=== PATIENT | male | born 1955 | race Hispanic/Latino ===

== ENCOUNTER 2019-05-15 09:15 | Inpatient (IN) | payer BC | END 2019-05-17 18:21 | disposition home or self-care (01) | LOC: EDH 09:15 → EDHIP 10:59 → 4AH 13:20 | PROC: 30253N1 (ICD-10-PCS; principal; ~2019-05-15) | DX: K92.1 Melena (principal); D62 Acute posthemorrhagic anemia; K76.6 Portal hypertension; K74.60 Unspecified cirrhosis of liver; N18.3 Chronic kidney disease, stage 3 (moderate); E11.22 Type 2 diabetes mellitus with diabetic chronic kidney disease; I12.9 Hypertensive chronic kidney disease with stage 1 through stage 4 chronic kidney disease, or unspecified chronic kidney disease ==

== ENCOUNTER 2024-04-09 06:05 | Day surgery (SDC) | payer BC, OTHER ==
[~2024-04-09] VITALS: Ht 160 cm; Wt 83.9 kg
[2024-04-09] VITALS (12 sets, daily range): BP systolic 90–123; BP diastolic 53–71; PULSE 65–73; RESP 14–16
[~2024-04-09 06:05] MED LIST: AMLO10TA4 PO; FERS325 PO; HYDR25TA PO; LACT10SO5 PO; LEVO125C4 PO; LOSA100T59 PO; NADO40TA2 PO; PANT40TA PO; RIFA550T PO; ROSU5TAB43 PO; SIME125C81 PO
[2024-04-09] MEDS ORDERED: EZET10TA48 PO (07:02)
[2024-04-09] MEDS: 0.9%NACL 1000ML 1,000 ML IV ONE (07:03)
[2024-04-09] MEDS ORDERED: PROPOFOL 10 MG/ML 20ML VIAL IV ONE (08:43)
== END 2024-04-09 09:50 | disposition home or self-care (01) ==
LOC: ENDO 06:05 → DAH 06:05 → EDSTATUS 09:00 → ENDO 09:50
PROVIDERS: ATTEND Internal Medicine Gastroenterology
DX: K76.6 Portal hypertension (principal); K74.69 Other cirrhosis of liver; K31.89 Other diseases of stomach and duodenum; I85.10 Secondary esophageal varices without bleeding; K76.82 Hepatic encephalopathy; R18.8 Other ascites; C22.9 Malignant neoplasm of liver, not specified as primary or secondary; K92.1 Melena; D50.9 Iron deficiency anemia, unspecified; E78.5 Hyperlipidemia, unspecified; I10 Essential (primary) hypertension; E03.9 Hypothyroidism, unspecified; E11.9 Type 2 diabetes mellitus without complications; Z79.84 Long term (current) use of oral hypoglycemic drugs; Z79.890 Hormone replacement therapy; Z79.899 Other long term (current) drug therapy; Z98.890 Other specified postprocedural states
CPT/HCPCS: 82948 ×2; 43239; J7030 ×2; J2704; A4620; A4215 ×2; A4223; A7002; A4222; A4221; A4663; A4606; J3490

== ENCOUNTER → 2025-04-13 | Outpatient (CLI) | payer OTHER ==
[~2025-04-13] MED LIST changes: +AMLO-915 PO; -AMLO10TA4 PO; +EZET10TA48 PO; +GADOTERATE MEGLUMINE 10 MMOL/20 ML VIAL IV ONE; +LACT-441 PO; -LACT10SO5 PO; -LEVO125C4 PO; +LEVO125C5 PO; -NADO40TA2 PO; +NADO40TA45 PO; -ROSU5TAB43 PO; +ROSU5TAB51 PO; -SIME125C81 PO
--- NOTE | 2025-04-13 11:37 | HMCIMG ---
Exam Type: MR ABDOMEN W/WO CON Clinical Information: LIVER CELL CARCINOMA Comparison: None Findings: There is abnormal. There are at least 3 lesions of the liver, the largest of which is centrally located right liver lobe lesion measuring 3.8 x 3.2 cm, with a lateral predominantly cystic as well as the medial solid enhancing component. Overlying the lesion there is a focus of dimpling of the hepatic surface possibly representing postoperative or posttreatment changes. 2 smaller lesions are noted within the right lobe near the dome, one solid and enhancing and measuring 2.2 cm, the second one predominantly cystic and more peripheral and anterior in location measuring 2.5 cm. The gastroesophageal junction varices are seen and the spleen is enlarged. The portal vein is patent at this time but devices suggest portal venous hypertension. The kidneys, pancreas, visualized bowel and adrenal glands are unremarkable and the gallbladder is surgically absent. IMPRESSION: At least 3 lesions of the liver consistent with given history of liver neoplasm.
== END | disposition home or self-care (01) ==
LOC: RAH 07:58
PROVIDERS: ATTEND Surgery Surgical Oncology
DX: C22.0 Liver cell carcinoma (principal); K76.9 Liver disease, unspecified; Q44.6 Cystic disease of liver; I86.4 Gastric varices; I85.00 Esophageal varices without bleeding; R16.1 Splenomegaly, not elsewhere classified; Z90.49 Acquired absence of other specified parts of digestive tract
CPT/HCPCS: 74183; A9575